=== PATIENT | female | born 1995 | race Caucasian/White ===

== ENCOUNTER 2020-05-06 14:58 | Emergency (ER) | payer MEDICAID ==
[~2020-05-06] VITALS: Ht 172.7 cm; Wt 80.0 kg
[2020-05-06 15:04] VITALS: BP 138/84
== END 2020-05-06 17:10 | disposition home or self-care (01) ==
LOC: ER 14:59
DX: M79.642 Pain in left hand (principal); M79.641 Pain in right hand; F32.9 Major depressive disorder, single episode, unspecified; Z79.899 Other long term (current) drug therapy
CPT/HCPCS: 99281; 99282